=== PATIENT | male | born 1945 | race Caucasian/White ===

== ENCOUNTER 2016-12-28 17:59 | Emergency (ER) | payer MEDICARE ==
[2016-12-28 18:25] LABS: BASOPHIL 0.2 % (0-2); EOSINOPHIL 1.8 % (0-7); HCT 41.8 % (42.0-52.0); HGB 14.5 g/dl (13.2-18.0); LYMPHOCYTE 37.3 % (15-48); MCH 29.6 pg (25.0-31.0); MCHC 34.7 g/dL (32.0-36.0); MCV 85.3 fL (78.0-100.0); MONOCYTE 5.4 % (0-12); MPV 10.8 fL (6.0-9.5); NEUTROPHIL 55.3 % (41-80); PLT 247 K/uL (150-400); RDW 13.1 % (11.5-14.0); WBC 10.8 K/uL (4.0-10.5)
[2016-12-28 18:30] LABS: INR 1.03 (0.9-1.2); PROTHROMBIN TIME 13.1 SECONDS (11.7-14.0); PTT 34.9 SECONDS (23.2-31.4)
[2016-12-28 18:43] LABS: TROPONIN T < 0.010 ng/mL
[2016-12-28 18:45] LABS: ALBUMIN 4.4 g/dL (3.4-4.8); BILIRUBIN - TOTAL 0.5 mg/dL (0.1-1.0); CREATININE 1.6 mg/dL (0.7-1.2); GLOBULIN (CALCULATION) 2.4 g/dL (2.2-4.2); POTASSIUM 3.8 mmol/L (3.5-5.1); TOTAL PROTEIN 6.8 g/dL (6.4-8.3)
[2016-12-28 18:46] LABS: CKMB 5.39 ng/mL (0.97-4.94)
[2016-12-28 19:42] LABS: MYOGLOBIN 99 ng/mL (26-65)
[2016-12-28 19:48] LABS: PRO-BNP 907 pg/mL (0-125)
== END 2016-12-28 19:35 | disposition other institution (70) ==
LOC: FER 17:59
PROVIDERS: Emergency Medicine
DX: I21.4 Non-ST elevation (NSTEMI) myocardial infarction (principal); I25.810 Atherosclerosis of coronary artery bypass graft(s) without angina pectoris; I11.9 Hypertensive heart disease without heart failure; I48.91 Unspecified atrial fibrillation; F17.210 Nicotine dependence, cigarettes, uncomplicated; Z82.49 Family history of ischemic heart disease and other diseases of the circulatory system; Z95.1 Presence of aortocoronary bypass graft; Z95.5 Presence of coronary angioplasty implant and graft
CPT/HCPCS: 36415; 71010; 78452; 80053; 82550; 82553; 83735; 83874; 83880; 84484; 85025; 85610; 85730; 93005; 93017; A9500; J0153; J1644; J2270; J2405

== ENCOUNTER 2017-03-11 11:51 | Emergency (ER) | payer MEDICARE ==
[2017-03-11 12:17] LABS: BASOPHIL 0.2 % (0-2); HCT 28.5 % (42.0-52.0); LYMPHOCYTE 29.1 % (15-48); MCH 29.8 pg (25.0-31.0); MCHC 35.1 g/dL (32.0-36.0); MCV 84.8 fL (78.0-100.0); MONOCYTE 6.8 % (0-12); MPV 10.6 fL (6.0-9.5); NEUTROPHIL 60.9 % (41-80); PLT 320 K/uL (150-400); RBC 3.36 M/uL (4.70-6.00); RDW 14.1 % (11.5-14.0); WBC 19.1 K/uL (4.0-10.5)
[2017-03-11 12:35] LABS: TROPONIN T 0.052 ng/mL
[2017-03-11 12:36] LABS: BILIRUBIN - TOTAL 0.3 mg/dL (0.1-1.0); CREATININE 1.9 mg/dL (0.7-1.2); GLOBULIN (CALCULATION) 2.2 g/dL (2.2-4.2); MAGNESIUM 1.77 mg/dL (1.40-2.10); POTASSIUM 3.1 mmol/L (3.5-5.1); TOTAL PROTEIN 6.2 g/dL (6.4-8.3)
[2017-03-11 12:39] LABS: CKMB 7.77 ng/mL (0.97-4.94)
[2017-03-11 13:46] LABS: INR 6.52 (0.9-1.2)
[2017-03-11 13:47] LABS: PTT 76.5 SECONDS (23.2-31.4)
== END 2017-03-11 12:20 | disposition expired ==
LOC: FER 11:51
PROVIDERS: Emergency Medicine
DX: I46.9 Cardiac arrest, cause unspecified (principal); I51.9 Heart disease, unspecified; Z82.49 Family history of ischemic heart disease and other diseases of the circulatory system
CPT/HCPCS: 31500; 36415; 71010; 80053; 82550; 82553; 83735; 83874; 83880; 84484; 85025; 85610; 85730; 92950; 93005; 94770